=== PATIENT | female | born 2000 | race African-American/Black ===

== ENCOUNTER 2019-03-27 18:47 | Emergency (ER) | payer BC, MEDICAID ==
[~2019-03-27] VITALS: Ht 160 cm; Wt 57.0 kg
[~2019-03-27 18:47] MED LIST: BIRTH CONTROL PILLS
[2019-03-27 21:26] LABS: CLARITY URINE CLEAR (CLEAR); COLOR URINE YELLOW (YELLOW); KETONES URINE NEGATIVE (NEGATIVE); LEUKOCYTE ESTERASE URINE NEGATIVE (NEGATIVE); NITRITE URINE NEGATIVE (NEGATIVE); OCCULT BLOOD URINE NEGATIVE (NEGATIVE); PROTEIN URINE NEGATIVE (NEGATIVE); SPECIFIC GRAVITY URINE 1.005 (1.005-1.030); UROBILINOGEN URINE 0.2 E.U./dL (0.2-1.0)
[2019-03-27 22:54] LABS: BASOPHILS % 1.1 % (0.0-2.0); EOSINOPHILS % 4.6 % (0.0-5.0); HEMOGLOBIN. 13.2 g/dL (12.0-16.0); LYMPHOCYTES % 45.6 % (20.0-50.0); MEAN CORPUSCULAR HEMOGLOBIN 30.8 pg (28.0-32.0); MEAN CORPUSCULAR VOLUME 93.4 fL (81.0-99.0); MONOCYTES % 10.5 % (2.0-8.0); NEUTROPHILS % 38.2 % (40.0-76.0); PLATELET 233 x1000/uL (130-400); RED BLOOD CELL COUNT 4.28 mill/uL (4.2-5.4); RED CELL DISTRIBUTION WIDTH 14.3 % (11.6-14.6)
[2019-03-27 23:32] VITALS: BP 105/55
== END 2019-03-27 23:32 | disposition home or self-care (01) ==
LOC: ER 18:47
DX: R55 Syncope and collapse (principal)
CPT/HCPCS: 36415; 81003; 81025; 93005; 99284

== ENCOUNTER 2021-08-03 16:35 | Emergency (ER) | payer BC, MEDICAID ==
[~2021-08-03] VITALS: Ht 157.5 cm; Wt 65.0 kg
[2021-08-03] MEDS ORDERED: IBUPROFEN 600MG TABLET PO ONE (17:00)
[2021-08-03] MEDS ORDERED: BACITRACIN ZINC OINT UDPKT TOP ONE (17:00)
[2021-08-03] MEDS ORDERED: LIDOCAINE HCL/PF 1% 10 MG/ML 5ML VIAL INFIL ONE (17:00)
[2021-08-03] MEDS ORDERED: TETANUS, DIPHTHERIA, PERTUSSIS VAC/PF 0.5ML (>10YR OLD) IM ONE (17:00)
[2021-08-03] MEDS ORDERED: IBUP-2029 MT ×2 (17:06)
[2021-08-03] MEDS ORDERED: BO1 TP ×2 (17:06)
[2021-08-03 17:11] VITALS: BP 119/73
[2021-08-03] MEDS ORDERED: LIDOCAINE HCL 1% 20ML VIAL (Pyxis) INJ INFIL NR (17:15)
== END 2021-08-03 18:30 | disposition home or self-care (01) ==
LOC: ER 16:35
DX: S61.412A Laceration without foreign body of left hand, initial encounter (principal); W26.8XXA Contact with other sharp object(s), not elsewhere classified, initial encounter; Y93.89 Activity, other specified; Y92.89 Other specified places as the place of occurrence of the external cause; Y99.8 Other external cause status
CPT/HCPCS: 12002; 90471; 90715; 99284; A4217; J3490; Z7610

== ENCOUNTER 2021-08-18 12:53 | Emergency (ER) | payer BC, MEDICAID ==
[~2021-08-18] VITALS: Ht 167.6 cm; Wt 51.0 kg
[~2021-08-18 12:53] MED LIST changes: +BO1 TP; +IBUP-2029 MT
[2021-08-18 12:58] VITALS: BP 119/72
== END 2021-08-18 13:23 | disposition home or self-care (01) ==
LOC: ER 12:53
DX: S61.412D Laceration without foreign body of left hand, subsequent encounter (principal); X58.XXXD Exposure to other specified factors, subsequent encounter
CPT/HCPCS: 99281; Z7610